=== PATIENT | female | born 1970 | race Hispanic/Latino ===

== ENCOUNTER → 2023-02-13 | Emergency (ER) | payer BC, OTHER ==
[~2023-02-13] MED LIST: ASPIRIN 81 MG CHEWABLE TABLET ONE; FOLIC ACID 5 MG/ML VIAL ONE; POTASSIUM 25 MEQ EFFERV TAB ONE
--- OUTSIDE RECORDS SUMMARY | 2023-02-13 17:11 | XMS REPORT | Continuity of Care Document ---
:1970 Author Organization [facility] t Address [address] [facility]. [address] [place] [address] Care Team Providers Name Role Phone MALORIE TRELL Primary Care Physician Unavailable Martha Jha Attending Clinician Unavailable CHANCE SENIOR Attending Clinician Unavailable CEDRIC MAGANA Attending Clinician Unavailable Cedric Magana MD Attending Clinician Aniyah Magana Attending Clinician Monica Gagnon Attending Clinician Unavailable Nurse, Adc Pob Immunization Attending Clinician Unavailable Elgin Garces DO Attending Clinician ELGIN GARCES Attending Clinician Unavailable TRISHA ROSADO Attending Clinician Unavailable Lab, Adc Fam Pob I Attending Clinician Unavailable Olimpia Almendarez Attending Clinician OLIMPIA LANDAVERDE Attending Clinician Unavailable Doctor Unassigned, [place] Attending Clinician Unavailable AMY MI Attending Clinician Unavailable Amy Escalona Attending Clinician Martha Jha Admitting Clinician Unavailable Monica Gagnon Admitting Clinician Unavailable Stas Reynoso Admitting Clinician Unavailable Payers Payer Name Policy Type Policy Number Effective Date Expiration Date Eric ANDREWS II [id number] 2021 00:00:00 Problems Condition Condition Condition Status Onset Resolution Last Treating Co mments Source Name Details Category Date Date Treatment Clinician Date No known No known Disease Unive rs active active ity of problems problems [facility] Allergies, Adverse Reactions, Alerts Allergy Allergy Status Severity Reaction(s) Onset Inactive Treating Comm ents Source Name Type Date Date Clinician Sulfamet Propensi Active Rash [facility] s hoxazole ty to 09-04 ity of adverse 00:00: [place] reaction 00 [facility] SULFAMET DRUG Active Rash Univers HOXAZOLE INGREDI 09-04 ity of 00:00: [place] 00 [facility] trimetho DA Active [place] 2016- [facility] prim 1-14 [place] 00:00: d 00 [facility] sulfamet DA Active [place] HIVES 2016- [facility] hoxazole 1-14 [place] 00:00: d 00 [facility] trimetho DA Active [place] HIVES 2016- [facility] prim 1-14 [place] 00:00: d 00 [facility] sulfamet DA Active [place] 2016- [facility] hoxazole 1-14 [place] 00:00: d 00 [facility] Social History Social Habit Start Date Stop Date Quantity Comments Source Sexual orientation [facility] Exposure to 2021-10-03 2021-10-13 Yes [facility] SARS-CoV-2 (event) 00:00:00 09:44:00 [facility] History of Social 2021-10-13 2021-10-13 Univers ity of function 00:00:00 00:00:00 [facility] Tobacco use and 2017-09-04 2017-09-04 Smokeless Universit y of exposure 00:00:00 00:00:00 tobacco non-user [facility] Sex Ass[birth year] At [birth year] Universit y of 00:00:00 00:00:00 [facility] Smoking Status Start Date Stop Date Source Never smoked tobacco [facility] Medications Ordered Filled Start Stop Current Ordering Indication Dosage Frequency Signature Comments Components Source Medication Medication Date Date Medication? Clinician (SIG) Name Name maalox/diph Yes [id number] 5mL Take 5 mL Univers enhydrAMINE 7-11 by mouth 3 it y of :lidocaine2 00:00: (three) Jerad as % viscous 00 times Medical 1:1:1 Susp daily as Branc h suspension needed (gargle and spit). bromphenira Yes [id number] 5mL Take 5 mL Univers mine-pseudo 7-11 by mouth 4 it y of ephedrine-D 00:00[place] ([place] (BROMFED 00 times Medical DM) 2-30-10 daily as Bran ch mg/5 mL needed for syrup Congestion /Allergies . benzonatate Yes [id number] 200mg Take 2 Univers 100 mg 7-11 capsules ity of capsule 00:00: by mouth [place] 00 every 8 Medical (eight) Branch hours as needed for Cough. azelastine Yes [id number] 1{spray Use 1 Univers 137 mcg 7-11 } [place] in ity of (0.1 %) 00:00: each [place] nasal spray 00 nostril in Wi dical the Branch morning and 1 [place] in the evening. Use in each nostril as directed predniSONE Yes [id number] 2 tabs now Univers 20 mg 6-02 and 2 tabs ity of tablet 00:00: early each [place] [address] morning Medical for total Branch of 5 doses. hydrOXYzine Yes [id number] 1-2 tabs Univers 25 mg 6-02 Every ity of tablet 00:00: 3-6hr as [place] [address] needed for Medical itch or Branch rash, at least 3 times a day. predniSONE 2017- Yes [id number] 2 tabs now Univers 20 mg 6-02 and 2 tabs ity of tablet 00:00: early each [place] [address] morning Medical for total Branch of 5 doses. hydrOXYzine 2017- Yes [id number] 1-2 tabs Univers 25 mg 6-02 Every ity of tablet 00:00: 3-6hr as [place] 00 needed for Medical itch or Branch rash, at least 3 times a day. predniSONE Yes [id number] 2 tabs now Univers 20 mg 6-02 and 2 tabs ity of tablet 00:00: early each [place] [address] morning Medical for total Branch of 5 doses. hydrOXYzine 2017- Yes [id number] 1-2 tabs Univers 25 mg 6-02 Every ity of tablet 00:00: 3-6hr as [place] 00 needed for Medical itch or Branch rash, at least 3 times a day. predniSONE 2018-0 Yes [id number] 2 tabs now Univers 20 mg 6-02 and 2 tabs ity of tablet 00:00: early each [place] 00 morning Medical for total Branch of 5 doses. hydrOXYzine 2018-0 Yes [id number] 1-2 tabs Univers 25 mg 6-02 Every ity of tablet 00:00: 3-6hr as [place] 00 needed for Medical itch or Branch rash, at least 3 times a day. predniSONE 2018-0 Yes [id number] 2 tabs now Univers 20 mg 6-02 and 2 tabs ity of tablet 00:00: early each [place] 00 morning Medical for total Branch of 5 doses. hydrOXYzine 2017- Yes [id number] 1-2 tabs Univers 25 mg 6-02 Every ity of tablet 00:00: 3-6hr as [place] 00 needed for Medical itch or Branch rash, at least 3 times a day. predniSONE 2018-0 Yes [id number] 2 tabs now Univers 20 mg 6-02 and 2 tabs ity of tablet 00:00: early each [place] 00 morning Medical for total Branch of 5 doses. hydrOXYzine 2017- Yes [id number] 1-2 tabs Univers 25 mg 6-02 Every ity of tablet 00:00: 3-6hr as [place] 00 needed for Medical itch or Branch rash, at least 3 times a day. Vital Signs Vital Name Observation Time Observation Value Comments Source Body weight 2021-10-13 22:14:00 88.134 kg [facility] BMI 2021-10-13 22:14:00 30.43 kg/m2 [facility] Oxygen saturation in 2021-10-13 22:14:00 100 /min [facility] Arterial blood by [facility] Pulse oximetry Branch Systolic blood 2021-10-13 22:14:00 130 mm[Hg] Univer sity of pressure [facility] Diastolic blood 2021-10-13 22:14:00 85 mm[Hg] [facility] Heart rate 2021-10-13 22:14:00 72 /min [facility] Body temperature 2021-10-13 22:14:00 36.61 [place] [facility] Respiratory rate 2021-10-13 22:14:00 17 /min [facility] Body height 2021-10-13 22:14:00 170.2 cm [facility] Procedures Procedure Date / Time Performed Performing Clinician Susana johnson SARS-COV-2 COVID-19 2021-04-18 19:56:29 [facility] Un[facility]igned, [facility] Name [facility] BOOSTER,0.25ML,IM (MODERNA) Encounters Start End Encounter Admission Attending Care Care Encounter Source Date/Time Date/Time Type Type Clinicians Facility Department ID 2022-09-25 2022-09-25 Outpatient MALI Jha TENNILLE MÉNDEZ [id number] [facility] 14:02:00 14:02:00 Martha Dumont [facility] 2022-07-20 2022-07-20 Outpatient OPHELIA SENIOR [id number] [place] 16:00:00 16:00:00 CHANCE reed 2022-07-20 2022-07-20 Outpatient OPHELIA SENIOR [id number] [place] 16:00:00 16:00:00 CHANCE reed 2021-10-13 2021-10-13 Outpatient Lynne MAGANA [facility] [id number] [facility] 17:20:00 17:20:14 CEDRIC pitts [facility] 2021-10-13 2021-10-13 Cedric Jarrett [facility] [id number] Univers 17:20:00 17:20:14 [facility] [id number] [facility] [id number] Jerad as KARISSA?BLEA [phone] Me [address] MEDICAL OFFICE BUILDING 2021-09-29 2021-09-29 Outpatient MALI Gagnon TENNILLE MÉNDEZ [id number] [facility] 12:00:00 12:00:00 Monica Snell [facility] 2021-09-19 2021-09-19 Outpatient MALI Gagnon TENNILLE HONEY [id number] [facility] 12:00:00 12:00:00 Monica Dangelo [facility] 2021-04-18 2021-04-18 Imm/Inj Nurse, [facility] Pob Immunization [facility] [id number] Univers 14:30:00 14:30:00 Visit Elgin Garces MART [id number] ity [facility] [id number] [place] PROFESS[place] [phone] [facility] 2021-04-18 2021-04-18 Outpatient R MILI [facility] [id number] Univers 14:30:00 13:13:[address] [facility] 2020-09-16 2020-09-16 Outpatient MALI Gagnon, [facility] [id number] [facility] 12:00:00 12:00:00 Monica Hart [facility] 2020-08-01 2020-08-01 Outpatient R ASHLEE [facility] [id number] Univers 11:20:00 11:19:[address] [facility] 2020-07-04 2020-07-04 [facility] [id number] Univers 11:20:00 11:15:[address] [facility] 2020-02-24 2020-02-24 Laboratory Lab, [facility] [id number] 18:00:46 18:20:46 Only Fam Pob I Health [id number] [place] [id number] Professio [phone] [address] One 2020-02-24 2020-02-24 Laboratory Lab, [facility] Fam Pob I [facility] [id number]. [id number] Univers 18:00:46 18:20:46 Only Saima Olimpia Health [id number] ity of [place] [id number] Jerad as Professio [phone] [facility] [address] One 2020-02-24 2020-02-24 Outpatient R SAIMA [facility] [id number] Univers 18:20:00 18:20:00 [facility] 2019-10-23 2019-10-23 Patient Doctor [facility] [id number] Univers 00:00:00 00:00:00 Secure Msg Unassigned, CAR STOWER [id number] ity of [place] [facility] [id number] Jerad as MATERNAL [phone] Med ical & CHILD 107 [facility] 2019-10-22 2019-10-22 Outpatient R RJ [facility] [id number] Univers 17:00:00 17:00:00 AMY ity of [facility] 2019-10-22 2019-10-22 Laboratory Lab, [facility] [id number] 13:44:58 14:04:58 Only Fam Pob I Health [id number] [place] [id number] Professio [phone] [address] 2019-10-22 2019-10-22 Laboratory Lab, [facility] Fam Pob I [facility] 1.2. [id number] Univers 13:44:58 14:04:58 Only Amy Mi [facility] [id number] ity of [place] [id number] Jerad as Professio [phone] Wi dical [address] Office [facility] 2019-10-22 2019-10-22 Letter Doctor HERON [id number] 00:00:00 00:00:00 (Out) Unassigned, BRONWYN [id number] [place] [facility] [id number] [phone] [facility] 2019-10-22 2019-10-22 Letter Doctor HERON [id number] Univers 00:00:00 00:00:00 (Out) Unassigned, BRONWYN [id number] ity of [place] [facility] [id number] Jerad as [phone] [address] 2019-08-21 2019-08-21 Outpatient TENNILLE Mccarthy [id number] [facility] 12:00:00 12:00:[address] [place] [address] Results This patient has no known results.
[2023-02-13 18:39] LABS: Absolute Lymphocytes (CBC) 3.9 K/uL (0.7-4.9); Hematocrit 39.3 % (36.0-45.0); Lymphocytes % 44.6 % (15.3-44.8); MCV 88.4 fL (80-100); MPV 8.4 fL (7.6-11.3); Platelets 286 thou/uL (152-406); RBC Red Blood Cell Count 4.45 M/uL (3.86-4.86)
[2023-02-13 18:40] LABS: Protime INR 0.9
[2023-02-13 19:19] LABS: Albumin 3.5 g/dL (3.4-5.0); Bilirubin Direct 0.2 mg/dL (0-0.2); Bilirubin Indirect, Calculated 0.3 mg/dL (0.2-0.8); Bilirubin Total 0.5 mg/dL (0.2-1.0); Magnesium 2.3 mg/dL (1.6-2.4); Potassium 3.3 mEq/L (3.5-5.1); Thyroid Stimulating Hormone 2.47 uIU/mL (0.358-3.740); Troponin High Sensitivity 5.2 pg/mL (<58.9)
--- NOTE | 2023-02-13 19:24 | RAD REPORT ---
EXAM DESCRIPTION: Marva Single View02/13/2023 6:32 pm CLINICAL HISTORY: CHEST PAIN COMPARISON: No comparisons TECHNIQUE: Portable AP view of the chest. FINDINGS: The lungs are clear. No pneumothorax or effusion. The cardiomediastinal contours are unre markable. IMPRESSION: No acute cardiopulmonary process.
--- NOTE | 2023-02-13 20:21 | EDPHYS ---
Physician Documentation [facility] Name: Anaid Vidal Age: 52 yrs Sex: Female : 1970 Arrival Date: 02/13/2023 Time: 17:09 Bed 6 Private MD: ED Physician Haroon Au HPI: 02/13 17:51 This 52 yrs old Female presents to ER via Ambulatory with complaints of High snw Blood Pressure, Dizziness, Palpitations, Blurred Vision, Anxiety. 17:51 The patient has elevated blood pressure and discovered this at home, Urgent care. snw Onset: The symptoms/episode began/occurred acutely, 2 week(s) ago, and became persistent. Associated signs and symptoms: Pertinent positives: dizziness, lightheadedness, visual changes, anxiety, shortness of breath, palpitations. Severity of symptoms: At its worst the blood pressure was moderate, 170 mm Hg. The patient has not experienced similar symptoms in the past. The patient has been recently seen at an urgent care, yesterday. 17:54 Onset: acutely. snw Historical: - Allergies: 17:22 Bactrim; ll1 - PMHx: 17:22 None; ll1 - PSHx: 17:22 tubal ligation; ll1 - Immunization history:: Adult Immunizations up to date. - Social history:: Smoking status: Patient denies any tobacco usage or history of. ROS: 17:49 ENT: Negative for injury, pain, and discharge, snw 17:49 Neck: Negative for injury, pain, and swelling, Cardiovascular: Positive for chest pain, palpitations, denies edema, Respiratory: Negative for shortness of breath, cough, wheezing, and pleuritic chest pain, Abdomen/GI: Negative for abdominal pain, nausea, vomiting, diarrhea, and constipation, Back: Negative for injury and pain, : Negative for injury, bleeding, discharge, and swelling, MS/Extremity: Negative for injury and deformity, Skin: Negative for injury, rash, and discoloration, 17:49 Constitutional: Positive for body aches, malaise, 17:49 Eyes: Positive for photophobia, visual disturbance, 17:49 Neuro: Positive for dizziness, Negative for gait disturbance, headache, loss of consciousness, syncope, 17:49 Psych: Positive for anxiety, Exam: 17:48 Head/Face: Normocephalic, atraumatic. Eyes: Pupils equal round and reactive to light, snw extra-ocular motions intact. Lids and lashes normal. Conjunctiva and sclera are non-icteric and not injected. Cornea within normal limits. Periorbital areas with no swelling, redness, or edema. ENT: Nares patent. No nasal discharge, no septal abnormalities noted. Tympanic membranes are normal and external auditory canals are clear. Oropharynx with no redness, swelling, or masses, exudates, or evidence of obstruction, uvula midline. Mucous membranes moist. Neck: Trachea midline, no thyromegaly or masses palpated, and no cervical lymphadenopathy. Supple, full range of motion without nuchal rigidity, or vertebral point tenderness. No Meningismus. Chest/axilla: Normal chest wall appearance and motion. Nontender with no deformity. No lesions are appreciated. Cardiovascular: Regular rate and rhythm with a normal S1 and S2. No gallops, murmurs, or rubs. Normal PMI, no JVD. No pulse deficits. Respiratory: Lungs have equal breath sounds bilaterally, clear to auscultation and percussion. No rales, rhonchi or wheezes noted. No increased work of breathing, no retractions or nasal flaring. Abdomen/GI: Soft, non-tender, with normal bowel sounds. No distension or tympany. No guarding or rebound. No evidence of tenderness throughout. Back: No spinal tenderness. No costovertebral tenderness. Full range of motion. Skin: Warm, dry with normal turgor. Normal color with no rashes, no lesions, and no evidence of cellulitis. MS/ Extremity: Pulses equal, no cyanosis. Neurovascular intact. Full, normal range of motion. Neuro: Awake and alert, GCS 15, oriented to person, place, time, and situation. Cranial nerves II-XII grossly intact. Motor strength 5/5 in all extremities. Sensory grossly intact. Cerebellar exam normal. Normal gait. 17:48 Constitutional: The patient appears alert, awake, anxious, 17:48 Psych: Behavior/mood is pleasant, cooperative, anxious, Affect is anxious. Oriented to person, place, time, Vital Signs: 17:22 BP 140 / 81; Pulse 75; Resp 17; Temp 98.1; Pulse Ox 96% on R/A; Weight 96.62 kg; Height ll1 5 ft. 7 in. ; Pain 0/10; 18:31 BP 131 / 69; Pulse 77; Resp 18; Pulse Ox 95% on R/A; ph 19:49 BP 120 / 67; Pulse 78; Resp 16 S; Pulse Ox 96% on R/A; as6 20:58 BP 113 / 59; Pulse 62; Resp 18 S; Pulse Ox 96% on R/A; as6 17:22 Body Mass Index 33.36 (96.62 kg, 170.18 cm) ll1 17:22 Pain Scale: Adult ll1 MDM: 17:34 Patient medically screened. snw 17:53 Differential diagnosis: hypertensive crisis, nonstemi, fatigue, anxiety. Data snw interpreted: Pulse oximetry: on room air is 96 %. Interpretation: acceptable. Data reviewed: vital signs, nurses notes. I considered the following discharge prescriptions or medication management in the emergency department Medications were administered in the Emergency Department. See JUN. 17:55 Differential diagnosis: abnormal EKG, anxiety, coronary artery disease gastroesophageal snw reflux disease (GERD), stable angina, unstable angina, Management of patient was discussed with the following:. HEART Score: History: Moderately Suspicious (1), ECG: Non specific repolarization disturbance / LBTB / PM (1), Age: > 45 and < 65 years (1), Risk Factors: No Risk Factors Known (0). Historians other than the Patient: Spouse/Significant Other: . Counseling: I had a detailed discussion with the patient and/or guardian regarding the historical points, exam findings, and any diagnostic results supporting the discharge/admit diagnosis, the presence of at least one elevated blood pressure reading (>120/80) during this emergency department visit. 19:26 ED course: discussed labs with patient and family. Recommend rapid rule out for ACS. Pt snw aggravated but will wait 3 hours for repeat troponin. Pt then relates that she took a different mutivitamin, a lipo B shot, and drank a crystal light with energy supplement today prior to s/s. 19:29 The patient was given aspirin in the Emergency Department. snw 19:57 Awaiting: repeat trop timing. snw 02/13 17:47 Order name: Basic Metabolic Panel; Complete Time: 19:20 snw 02/13 19:34 Interpretation: Normal except: ANION GAP 7.3; hypokalemia. snw 02/13 17:47 Order name: CBC with Diff; Complete Time: 18:45 snw 02/13 17:47 Order name: LFT's; Complete Time: 19:20 snw 02/13 17:47 Order name: Magnesium; Complete Time: 19:20 snw 02/13 17:47 Order name: NT PRO-BNP; Complete Time: 19:20 snw 02/13 17:47 Order name: PT-INR; Complete Time: 18:42 snw 02/13 17:47 Order name: Troponin HS; Complete Time: 19:20 snw 02/13 17:47 Order name: TSH; Complete Time: 19:20 snw 02/13 19:30 Interpretation: Within normal limits. [facility] 02/13 17:47 Order name: Vitamin B12; Complete Time: 19:20 snw 02/13 20:05 Order name: Troponin HS; Complete Time: 20:54 rv 02/13 17:47 Order name: XRAY Chest (1 view); Complete Time: 19:30 w 02/13 19:30 Interpretation: No acute disease. [facility] 02/13 17:47 Order name: EKG; Complete Time: 17:48 snw 02/13 19:59 Order name: EKG; Complete Time: 19:59 snw 02/13 17:47 Order name: Cardiac monitoring; Complete Time: 18:36 snw 02/13 17:47 Order name: EKG - Nurse/Tech; Complete Time: 18:17 snw 02/13 17:47 Order name: IV Saline Lock; Complete Time: 18:36 snw 02/13 17:47 Order name: Labs collected and sent; Complete Time: 18:36 snw 02/13 17:47 Order name: O2 Per Protocol; Complete Time: 18:17 snw 02/13 17:47 Order name: O2 Sat Monitoring; Complete Time: 18:17 snw 02/13 19:59 Order name: Repeat Cardiac Enzymes at: 2014; Complete Time: 20:20 snw 02/13 19:59 Order name: EKG - Nurse/Tech; Complete Time: 20:20 snw EC:47 Rate is 69 beats/min. Rhythm is regular. QRS [place] is Normal. T waves are Inverted in snw leads II, III, V3, V4. T waves are Flattened in leads aVF, V5, V6. Administered Medications: 19:48 Drug: foLIC Acid IVPB 1 mg IVPB once Route: IVPB; Site: right antecubital; as6 21:11 Follow up: Response: No adverse reaction; IV Status: Completed infusion; IV Intake: [id number] 19:48 Drug: Potassium PO Effervescent Tablet 25 mEq PO once; dissolve in 4 ounces of water or as6 juice Route: PO; 21:11 Follow up: Response: No adverse reaction as6 19:49 Drug: Aspirin PO Chewable Tablet 324 mg PO once; 81 mg tablets x 4 Route: PO; as6 21:10 Follow up: Response: No adverse reaction as6 Disposition Summary: 02/13/23 20:21 Hospitalization Ordered Notes: Diagnosis - Hypokalemia snw - Adverse effect of other drugs, medicaments and biological substances snw Discharge Instructions: - Discharge Summary Sheet snw - Nonspecific Chest Pain, Adult snw - Potassium Content of Foods snw - Stress, Adult snw - How to Take Your Blood Pressure, Tnpt-ys-Qiyw snw - Aspirin and Your Heart snw - Hypokalemia snw - Rehydration, Adult snw - Form - Blood Pressure Record Sheet snw - Managing Stress, Adult snw Forms: - Work release form snw - Medication Reconciliation Form snw - SBAR form snw - Leadership Thank You Letter snw Prescriptions: - Protonix 40 mg Oral Tablet - take 1 tablet ORAL route once daily; 30 tablet; Refills: 0, Product Selection snw Permitted Addendum: 02/16/2023 07:24 I was immediately available for consultation during this patient's visit. I did not e c2 personally see the patient or guide the patient's care.. Signatures: Dispatcher [employer] EDKY Afua Marrero FNP-C [employer]-Rachelw Sudeep Ordaz RN RN ll1 Rashid Walker RN RN as6 Haroon Au MD MD ec2 Corrections: (The following items were deleted from the chart) 02/13 19:34 19:31 Normal except: hypokalemia. snw snw 20:19 17:55 Differential diagnosis: abnormal EKG, anxiety, coronary artery disease snw gastroesophageal reflux disease (GERD), stable angina, unstable angina, snw 20:22 20:18 WAYLON Risk Score: 1 - patient's age is greater or equal to 65 years, 1 - Three or snw more CAD risk factors, 1- Known CAD, 1 - ASA use in past 7 days, 1 - Recent [<24hrs] Severe Angina, TOTAL SCORE = 5 snw 20: 20:19 Management of patient was discussed with the following: Hospitalist: Dr. Chávez, snw will admit for further work up. snw 20: 20:19 Care significantly affected by the following chronic conditions: Diabetes, snw Hypertension, pulmonary fibrosis. snw :22 20:21 Inpatient Admission snw snw : 20:21 Sejal Chávez snw snw : 20:21 Telemetry/MedSurg (Inpatient) snw snw : 20:21 Stable snw snw : 20:21 an acute exacerbation snw snw : 20:21 are unchanged snw snw : 20:21 Standard snw snw : 20:21 snw snw : 20:21 Chest pain, unspecified snw snw
--- NOTE | 2023-02-13 20:21 | ER ---
Nurse's Notes [facility] Name: Anaid Vidal Age: 52 yrs Sex: Female : 1970 Arrival Date: 02/13/2023 Time: 17:09 Bed 6 Private MD: Diagnosis: Chest pain, unspecified;Hypokalemia;Adverse effect of other drugs, medicaments and biological substances Presentation: 02/13 17:22 Chief complaint: Patient states: Dizzy, fast HR, blurred vision, dizziness with ll1 standing, feeling weird for 2 weeks. Took BP at store today 173/89. Went to urgent care 150/98, HR 83. States she had anxiety attack at Urgent Care, then came here for further evaluation. Coronavirus screen: Client denies travel out of the [place] in the last 14 days. At this time, the client does not indicate any symptoms associated with coronavirus-19. Ebola Screen: Patient denies travel to an Ebola-affected area in the 21 days before illness onset. Initial Sepsis Screen: Does the patient meet any 2 criteria? No. Patient's initial sepsis screen is negative. Does the patient have a suspected source of infection? No. Patient's initial sepsis screen is negative. Risk Assessment: Do you want to hurt yourself or someone else? Patient reports no desire to harm self or others. Onset of symptoms was February 01, 2023. 17:22 Method Of Arrival: Ambulatory ll1 17:22 Acuity: PREETI 3 ll1 Triage Assessment: 17:25 General: Appears uncomfortable, Behavior is calm, cooperative, appropriate for age. ll1 General: Reports high BP and feeling weird. Pain: Denies pain. EENT: Reports blurred vision. Cardiovascular: Reports lightheadedness, palpitations. Historical: - Allergies: 17:22 Bactrim; ll1 - PMHx: 17:22 None; ll1 - PSHx: 17:22 tubal ligation; ll1 - Immunization history:: Adult Immunizations up to date. - Social history:: Smoking status: Patient denies any tobacco usage or history of. Screenin:31 [facility] ED Fall Risk Assessment (Adult) History of falling in the last 3 months, ph including since admission No falls in past 3 months (0 pts) Score/Fall Risk Level 0 - 2 = Low Risk Oriented to surroundings, Maintained a safe environment, Provided non-skid footwear, Hourly rounding (assess needs \T\ fall precautionary measures) done. Abuse screen: Denies threats or abuse. Denies injuries from another. Nutritional screening: No deficits noted. Tuberculosis screening: No symptoms or risk factors identified. Assessment: 18:35 General: Appears in no apparent distress. comfortable, well groomed, Behavior is ph cooperative, appropriate for age, anxious. Pain: Complains of pain in chest. Neuro: Level of Consciousness is awake, alert, obeys commands, Oriented to person, place, time, situation. Cardiovascular: Reports chest pain, lightheadedness, palpitations, Denies shortness of breath, Capillary refill < 3 seconds in bilateral fingers Patient's skin is warm and dry. Respiratory: Airway is patent Respiratory effort is even, unlabored. GI: No signs and/or symptoms were reported involving the gastrointestinal system. Derm: Skin is pink, warm \T\ dry. 19:50 Reassessment: Patient appears in no apparent distress at this time. Patient and/or as6 family updated on plan of care and expected duration. Pain level reassessed. Patient is alert, oriented x 3, equal unlabored respirations, skin warm/dry/pink. Vital Signs: 17:22 BP 140 / 81; Pulse 75; Resp 17; Temp 98.1; Pulse Ox 96% on R/A; Weight 96.62 kg; Height ll1 5 ft. 7 in. ; Pain 0/10; 18:31 BP 131 / 69; Pulse 77; Resp 18; Pulse Ox 95% on R/A; ph 19:49 BP 120 / 67; Pulse 78; Resp 16 S; Pulse Ox 96% on R/A; as6 20:58 BP 113 / 59; Pulse 62; Resp 18 S; Pulse Ox 96% on R/A; as6 17:22 Body Mass Index 33.36 (96.62 kg, 170.18 cm) ll1 17:22 Pain Scale: Adult ll1 ED Course: 17:12 Patient arrived in ED. im 17:18 Amira Devine, RN is Primary Nurse. ph 17:22 Arm band placed on Patient placed in an exam room, on a stretcher. ll1 17:25 Triage completed. ll1 17:30 Afua Marrero FNP-C is PHCP. snw 17:30 Haroon Au MD is Attending Physician. snw 18:30 Initial lab(s) drawn, by me, sent to lab. Inserted saline lock: 22 gauge in right ph antecubital area, using aseptic technique. Blood collected. 18:31 Patient has correct armband on for positive identification. Placed in gown. Bed in low ph position. Call light in reach. Side rails up X 1. Pulse ox on. NIBP on. Door closed. Noise minimized. Warm blanket given. 18:34 XRAY Chest (1 view) In Process Unspecified. EDMS 20:20 Sejal Chávez MD is Hospitalizing Provider. snw 21:11 No provider procedures requiring assistance completed. as6 21:19 IV discontinued, intact, bleeding controlled, No redness/swelling at site. Pressure rv dressing applied. Administered Medications: 19:48 Drug: foLIC Acid IVPB 1 mg IVPB once Route: IVPB; Site: right antecubital; as6 21:11 Follow up: Response: No adverse reaction; IV Status: Completed infusion; IV Intake: 22mmns4 19:48 Drug: Potassium PO Effervescent Tablet 25 mEq PO once; dissolve in 4 ounces of water or as6 juice Route: PO; 21:11 Follow up: Response: No adverse reaction as6 19:49 Drug: Aspirin PO Chewable Tablet 324 mg PO once; 81 mg tablets x 4 Route: PO; as6 21:10 Follow up: Response: No adverse reaction as6 Medication: 18:31 VIS not applicable for this client. ph Intake: 21:11 IV: 10ml; Total: 10ml. as6 Outcome: 20:21 Decision to Hospitalize by Provider. snw 21:11 Condition: stable as6 21:18 Discharged to home ambulatory, with family, rv 21:18 Discharge instructions given to patient, Instructed on discharge instructions, follow up and referral plans. medication usage, Demonstrated understanding of instructions, follow-up care, medications, Prescriptions given X 1, 21:19 Patient left the ED. rv Signatures: Dispatcher [employer] EDWV Afua Marrero FNP-C FNP-Amira Sim RN RN Roshan Comer RN RN rv Sudeep Ordaz RN RN ll1 Rashid Walker RN RN as6 Laurie Man im
[2023-02-13 21:31] VITALS: TEMP 98.1
[2023-02-13 21:33] VITALS: O2SAT 96
[2023-02-13 21:34] VITALS: BP 113/59
--- NOTE | 2023-02-17 17:35 | EKG ---
Test Date: 2023-02-13 Test Time: 20:13:34 Can Filling And Closing Machine Tender: RV MEASUREMENT RESULTS: Intervals: Rate: 60 MN: 142 QRSD: 74 QT: 410 QTc: 410 Frost: P: 18 MN: 142 QRS: 62 T: -28 INTERPRETIVE STATEMENTS: Normal sinus rhythm T wave abnormality, consider inferior ischemia Abnormal ECG Compared to ECG 02/13/2023 17:24:08 Possible ischemia now present T-wave abnormality still present Electronically Signed On 02-17-23 17:25:59 [employer] SET UP OPERATOR by Jake Covarrubias
--- NOTE | 2023-02-17 17:36 | EKG ---
Test Date: 2023-02-13 Test Time: 17:24:08 Associate Medical Director: KRYS MEASUREMENT RESULTS: Intervals: Rate: 69 RI: 140 QRSD: 88 QT: 394 QTc: 422 [place]: P: 41 RI: 140 QRS: 53 T: -31 INTERPRETIVE STATEMENTS: Normal sinus rhythm Nonspecific T wave abnormality Abnormal ECG No previous ECG available for comparison Electronically Signed On 02-17-23 17:26:05 CRIMINAL JUSTICE TEACHER by Jake Covarrubias
== END ==
LOC: ER 17:09
DX: E87.6 Hypokalemia (principal); T50.995A Adverse effect of other drugs, medicaments and biological substances, initial encounter; Z88.1 Allergy status to other antibiotic agents
CPT/HCPCS: 36415; 71045; 80048; 80076; 82607; 83735; 83880; 84443; 84484; 85025; 85610; 93005; 96365; 99284